=== PATIENT | female | born 1985 | race Caucasian/White ===

== ENCOUNTER → 2018-05-29 | Outpatient (CLI) | payer OTHER | LOC: FIMAGING 11:06 | PROVIDERS: ATTEND Nurse Practitioner Women's Health | DX: T83.32XA Displacement of intrauterine contraceptive device, initial encounter (principal) ==

== ENCOUNTER 2018-05-30 11:43 | Day surgery (SDC) | payer OTHER ==
--- NOTE | 2018-05-29 19:39 | GHP ---
DATE OF ADMISSION: 05/30/2018 PREOPERATIVE DIAGNOSIS: Abdominal intrauterine device. SURGERY TO BE PERFORMED: Laparoscopic removal of an abdominal intrauterine device. SURGEON: Dr. Gewn Michel. ANESTHESIA: General anesthesia. INDICATIONS FOR PROCEDURE: The patient is a 32-year-old, 0, who has a longstanding history o f menorrhagia, which she has treated with oral contraceptive pills for many years. She desired to di scontinue oral contraceptive pills and try a Mirena IUD for her menorrhagia. This was placed on 2017, at [facility]. The patient received Cytotec pre-medication for the procedure, and the procedure went well, without complications. She presented on the for a followup to [facility] the placement of the IUD. The patient had no spotting, no pain with intercourse, and she was stil l continuing to take her Seasonique oral contraceptive pills. On exam, the IUD strings were not seen . Ultrasound demonstrated that the IUD was not in her endometrium and was difficult to visualize in her pelvic cavity, but assumed possibly in her cul-de-sac. She had a flat plate of the abdomen perfo rmed, and this diagnosed the IUD residing in the right hemipelvis, inferior to the right sacroiliac j oint, and she had a normal bowel pattern. Therefore, the diagnosis of an abdominal IUD was made. It likely was perforated during insertion and had migrated out of the perforation site into the bowel, and indicated for laparoscopic removal. PAST MEDICAL HISTORY: The patient has no significant past medical problems. PAST SURGICAL HISTORY: She has never been . GYNECOLOGIC HISTORY: She has normal menses, menarche occurred at age 12, flow for 4 days and cycles every 28 days until she was put on Seasonique, and she has 3-month cycles. She has no history of sig nificant abnormal Pap smears or STDs. Her most recent Pap was performed in December of 2016, and this w as normal. SOCIAL HISTORY: She is . 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 She denies tobacc o. Alcohol approximately 1 drink a day. No drug use. Caffeine daily. She does regular exercise 3 times a week and bikes to work. They have decided to adopt siblings from [facility], and they do not want to conceive their own children at this time, and the adoption is imminent. They expect a call in next 1-2 weeks. FAMILY HISTORY: Significant for a paternal grandfather with diabetes, uncle with stomach cancer, and paternal aunt with ovarian cancer. No other significant family history. PHYSICAL EXAMINATION: VITAL SIGNS: Today, she is afebrile. Vital signs are stable. Her blood pres sure was 100/70. Weight is 151 pounds. GENERAL: She is a well-developed, well-nourished, thin, whi te woman, in no acute distress. LUNGS: Clear to auscultation bilaterally. HEART: Regular rate and rhythm. No murmur. ABDOMEN: Soft, nontender, nondistended. Normal bowel sounds. PELVIC: Normal nulliparous cervix. No IUD strings visualized. Uterus is nontender. No cervical motion tenderness . Adnexa with no masses and nontender. ASSESSMENT AND PLAN: A 32-year-old, 0, with an abdominal intrauterine device, indicated for laparoscopic removal. This will be performed tomorrow, on the . She was consented for the proce dure today. She understood the risks and benefits. The risks including bleeding, infection, damage to organs, uterus, tubes, ovaries, bowel, bladder, nerves, blood vessels, and ureters, need for open procedure, and need for additional procedures. She understood these risks and benefits and agreed to proceed. /[id number]/MODL
[2018-05-30] MEDS ORDERED: LIDOCAINE 1% 2 ML INJ ONE (12:02)
[2018-05-30] MEDS ORDERED: LR 1,000 ML IV ONE (12:07)
[2018-05-30] MEDS ORDERED: LIDOCAINE 1% 2 ML INJ ID PRN (12:07)
[2018-05-30] MEDS ORDERED: SILVER NITRATE APPLICATOR 1 APPL TP ONE (12:42)
[2018-05-30] MEDS ORDERED: BUPIVACAINE 0.25% 30 ML SDV ONE (12:42)
[2018-05-30] MEDS ORDERED: MIDAZOLAM 2 MG/2 ML VIAL IVP ONE (13:11)
--- NOTE | 2018-05-30 13:12 | PDANEPAE ---
ANE History of Present Illness here for lap IUD retrieval ANE Past Medical History - Cardiovascular History Hx Hypertension: No Hx Arrhythmias: No Hx Chest Pain: No Hx Coronary Artery / Peripheral Vascular Disease: No Hx CHF / Valvular Disease: No Hx Palpitations: No - Pulmonary History Hx COPD: No Hx Asthma/Reactive Airway Disease: No Hx Recent Upper Respiratory Infection: No Hx Oxygen in Use at Home: No Hx Sleep Apnea: No Sleep Apnea Screening Result - Last Documented: Negative - Neurologic History Hx Cerebrovascular Accident: No Hx Seizures: No Hx Dementia: No - Endocrine History Hx Diabetes: No - Renal History Hx Renal Disorders: No - Liver History Hx Hepatic Disorders: No - Neurological & Psychiatric Hx Hx Neurological and Psychiatric Disorders: No - Cancer History Hx Cancer: No - Congenital Disorder History Hx Congenital Disorders: No - GI History Hx Gastrointestinal Disorders: No - Other Health History Other Health History: n/a - Chronic Pain History Chronic Pain: No - Surgical History Prior Surgeries: wisdom teeth extraction ANE Review of Systems Review of systems is: negative Review of Systems: - Exercise capacity Exercise capacity: <4 METS METS (RN): 5 METS ANE Patient History - Allergies Allergies/Adverse Reactions: No Known Allergies Allergy (Verified 05/29/18 15:59) - Home Medications Home medications: home medication list seen and reviewed Home Medications: Seasonale/Jolessa 05/29/18 [Last Taken Unknown] - NPO status NPO Status: no food or drink >8 hours NPO Since - Liquids (Date): 05/30/18 NPO Since - Liquids (Time): 10:15 NPO Since - Solids (Date): 05/30/18 NPO Since - Solids (Time): 04:30 - Anes Hx Anes Hx: no prior problems - Smoking Hx Smoking Status: Never smoked - Family Anes Hx Family Hx Anesthesia Complications: none ANE Labs/Vital Signs - Vital Signs Vital Signs: reviewed preoperatively; see RN documention for details Blood Pressure: 118/83 Heart Rate: 73 Respiratory Rate: 20 O2 Sat (%): 100 Height: 172.72 cm Weight: 68.039 kg ANE Physical Exam - Airway Neck exam: FROM Mallampati Score: Class 1 - Pulmonary Pulmonary: no respiratory distress - Cardiovascular Cardiovascular: regular rate and rhythym - ASA Status ASA Status: I ANE Anesthesia Plan Anesthesia Plan: general endotracheal anesthesia
[2018-05-30] MEDS ORDERED: PROPOFOL/EMULSION 500 MG/50 ML BOTTLE IV ONE (13:44)
[2018-05-30] MEDS ORDERED: fentaNYL 100 MCG/2 ML INJ ONE ×2 (13:47→14:25)
[2018-05-30] MEDS ORDERED: IBUPROFEN 200 MG TAB PO PRN (15:29)
[2018-05-30] MEDS ORDERED: HYDROCODONE/APAP 5/325 TAB PO PRN (15:29)
[2018-05-30] MEDS ORDERED: HYDROCODONE/APAP 5/325 TAB ONE (16:56)
[2018-05-30 17:23] VITALS: BP 108/76
--- NOTE | 2018-06-08 19:23 | GOP ---
DATE OF OPERATION: 05/30/2018 SURGEON: Yonathan Pierre MD PREOPERATIVE DIAGNOSIS: abnormal appendix POSTOPERATIVE DIAGNOSIS: benign appendix PROCEDURE PERFORMED: laparascopic adhesiolysis FINDINGS: inflammatory dhesions entrapping appendix DESCRIPTION OF PROCEDURE: The patient is a 32-year-old female undergoing laparoscopic surgery by Dr. Michel. The patient had a perforation of an IUD from the fundus of the uterus, it had wedged up underneath the appendix, and I was consulted to evaluate the appendix for possible injury. The appendix itself appeared to be normal, but there was a blind pocket created from adhesions secondary to the lodgement of the IUD adjacent to the appendix. Procedure-yang, I elevated up the appendix and freed it up from these adhesions in the lateral pelvic wall. The appendix itself appeared to be quite pliable and soft still and was now freed up from this entrapment with these adhesions secondary to the IUD. There was no significant bleeding. Hemostasis was assured. After completion of that portion of the procedure, the case was turned back over to Dr. Michel for further closure and dictation. /[id number]/MODL MTDD
== END 2018-05-30 17:23 | disposition home or self-care (01) ==
LOC: FSGY 11:43
PROVIDERS: ATTEND Obstetrics & Gynecology
PROC: 0WPJ4YZ Removal of Other Device from Pelvic Cavity, Percutaneous Endoscopic Approach (ICD-10-PCS; principal; 2018-05-30 13:30)
DX: T83.32XA Displacement of intrauterine contraceptive device, initial encounter (principal)
CPT/HCPCS: J2250; J2704; J3010